=== PATIENT | male | born 1985 | race Caucasian/White ===

== ENCOUNTER 2017-02-18 21:43 | Inpatient (IN) | payer OTHER ==
[~2017-02-18] VITALS: Ht 180.3 cm; Wt 72.1 kg
[2017-02-18 21:46] VITALS: BP 128/83
[2017-02-18] MEDS ORDERED: HUMULIN N100 UNIT/3 (21:52)
[2017-02-18] MEDS ORDERED: LANTUS100 UNIT/M SUBQ (21:52)
[2017-02-18 21:54] LABS: ABSOLUTE BASOPHILS 0.1 thou/uL (0.0-0.2); ABSOLUTE EOSINOPHILS 0.1 thou/uL (0.0-0.7); ABSOLUTE MONOCYTES 1.1 thou/uL (0.0-1.2); ABSOLUTE NEUTROPHILS 10.6 thou/uL (1.6-8.1); BASOPHILS 0.7 %; EOSINOPHILS 0.6 %; HEMATOCRIT 48.5 % (42.0-52.0); LYMPHOCYTES 14.3 %; MCH 30.2 pg (26.0-34.0); MCHC 33.1 g/dL (28.0-37.0); MCV 91.2 fL (80.0-100.0); MONOCYTES 8.1 %; NUCLEATED RBCS 0 /100WBC; PLATELET COUNT* 377 thou/uL (150-400); POLYS 76.3 %; RBC 5.31 mil/uL (4.50-6.00); RDW-CV 13.6 % (10.5-14.5); WBC 13.9 thou/uL (4.0-11.0)
[2017-02-18 22:08] LABS: ANION GAP 16 mmol/L (7-16); BUN 19 mg/dL (7-18); CALCIUM 9.9 mg/dL (8.5-10.1); CHLORIDE 101 mmol/L (98-107); CO2 28 mmol/L (21-32); CREATININE 1.2 mg/dL (0.6-1.3); SODIUM 145 mmol/L (136-145)
[2017-02-18 22:13] LABS: ALBUMIN 4.3 g/dL (3.4-5.0); ALKALINE PHOSPHATASE 153 U/L (46-116); SGOT 22 U/L (15-37); SGPT 47 U/L (30-65); TOTAL BILIRUBIN 0.4 mg/dL (<0.1-1.0); TOTAL PROTEIN 8.5 g/dL (6.4-8.2); TROPONIN-I LEVEL <0.06 ng/mL (<0.06)
[2017-02-18 22:20] LABS: GLUCOSE 24 mg/dL (70-99)
[2017-02-19 00:04] VITALS: BP 96/60
[2017-02-19 00:30] VITALS: BP 124/75
[2017-02-19] MEDS ORDERED: [UNRECOGNIZED DRUG - OTHER] SUBQ (01:29)
[2017-02-19] MEDS ORDERED: LEXAPRO 10 MG T10 M2 PO (01:30)
[2017-02-19] MEDS ORDERED: CLONAZEPAM 0.50.5 M1 PO (01:31)
[2017-02-19 08:04] VITALS: BP 112/57
[2017-02-19] MEDS ORDERED: HUMULIN N100 UNIT/3 SUBQ (08:46)
[2017-02-19 10:10] LABS: URINE BILIRUBIN NEGATIVE (Negative); URINE BLOOD TRACE (Negative); URINE CLARITY CLEAR; URINE COLOR YELLOW; URINE GLUCOSE-RANDOM 2+ (Negative); URINE KETONES NEGATIVE (Negative); URINE LEUKOCYTES-REFLEX NEGATIVE (Negative); URINE NITRITE-REFLEX NEGATIVE (Negative); URINE PROTEIN NEGATIVE (Negative); URINE UROBILINOGEN 0.2 E.U./dl (0.2-1.0)
[2017-02-19 10:17] LABS: AMP/METHAMP POSITIVE (Negative); BARBITURATES Negative (Negative); BENZODIAZEPINES Negative (Negative); COCAINE Negative (Negative); METHADONE Negative (Negative); OPIATES Negative (Negative); PCP Negative (Negative); THC POSITIVE (Negative)
--- NOTE | 2017-02-19 12:29 | EKG ---
[place] [address] ELECTROCARDIOGRAM REPORT Name: TAE ZELAYA Room: [address] ADM IN [facility].#: [id number] Admission: 02/18/17 Attend Phys: Alex Mueller Discharge: Date of : 85 Report #: [id number] THIS REPORT FOR: //name// [facility] ED Test Date: 2017-02-18 Test Time: 22:02:53 Pat Name: TAE ZELAYA Department: Room: [facility] Gender: M Ginner: : 1985 Requested By: Christiano Condon Order Number: [id number] MD: Olegario Guevara Measurements Intervals [place] Rate: 82 P: 40 RI: 136 QRS: -37 QRSD: 105 T: 56 QT: 353 QTc: 413 Interpretive Statements Sinus rhythm Left axis deviation No previous ECG available for comparison Electronically Signed On 02-19-2017 12:28:58 UNDERGROUND REPAIRER by Olegario Guevara [email or web address] <ELECTRONICALLY SIGNED> By: Olegario Guevara MD, [facility] 02/19/17 1228 2201 01 Olegario Guevara MD, FACC /EPI
[2017-02-19 12:41] VITALS: BP 112/57
[2017-02-19 13:30] VITALS: BP 112/57
== END 2017-02-19 13:30 | disposition home or self-care (01) | DRG 639 ==
LOC: M.ERS 21:43 → M.ORTHSURG 23:25 → M.TBA-ER 23:25 → M.ORTHSURG 02-19 00:28
PROVIDERS: Emergency Medicine Emergency Medical Services; ADMIT Internal Medicine
DX: E10.649 Type 1 diabetes mellitus with hypoglycemia without coma (principal); F17.210 Nicotine dependence, cigarettes, uncomplicated; J45.909 Unspecified asthma, uncomplicated; F41.9 Anxiety disorder, unspecified; Z91.19 Patient's noncompliance with other medical treatment and regimen; Z79.4 Long term (current) use of insulin; Z89.112 Acquired absence of left hand

== ENCOUNTER 2017-04-23 16:50 | Emergency (ER) | payer OTHER ==
[~2017-04-23] VITALS: Ht 180.3 cm; Wt 68.0 kg
[~2017-04-23 16:50] MED LIST: CLONAZEPAM 0.50.5 M1 PO; HUMULIN N100 UNIT/3; HUMULIN N100 UNIT/3 SUBQ; LANTUS100 UNIT/M SUBQ; LEXAPRO 10 MG T10 M2 PO; [UNRECOGNIZED DRUG - OTHER] SUBQ
[2017-04-23] MEDS ORDERED: LANTUS100 UNIT/M SUBQ (17:04)
[2017-04-23 17:20] LABS: URINE BILIRUBIN NEGATIVE (Negative); URINE BLOOD NEGATIVE (Negative); URINE CLARITY CLEAR; URINE COLOR YELLOW; URINE GLUCOSE-RANDOM 3+ (Negative); URINE KETONES TRACE (Negative); URINE LEUKOCYTES-REFLEX NEGATIVE (Negative); URINE NITRITE-REFLEX NEGATIVE (Negative); URINE PROTEIN NEGATIVE (Negative); URINE UROBILINOGEN 0.2 E.U./dl (0.2-1.0)
[2017-04-23 17:28] LABS: AMP/METHAMP POSITIVE (Negative); BARBITURATES Negative (Negative); BENZODIAZEPINES Negative (Negative); COCAINE Negative (Negative); METHADONE Negative (Negative); OPIATES POSITIVE (Negative); PCP Negative (Negative); THC Negative (Negative)
[2017-04-23 17:36] LABS: ABSOLUTE BASOPHILS 0.1 thou/uL (0.0-0.2); ABSOLUTE EOSINOPHILS 0.1 thou/uL (0.0-0.7); ABSOLUTE LYMPHOCYTES 2.1 thou/uL (0.8-5.3); ABSOLUTE MONOCYTES 0.6 thou/uL (0.0-1.2); ABSOLUTE NEUTROPHILS 4.4 thou/uL (1.6-8.1); EOSINOPHILS 1.4 %; HEMATOCRIT 44.1 % (42.0-52.0); HEMOGLOBIN 14.9 gm/dL (14.0-18.0); LYMPHOCYTES 29.3 %; MCH 30.8 pg (26.0-34.0); MCHC 33.9 g/dL (28.0-37.0); MCV 90.8 fL (80.0-100.0); MONOCYTES 7.9 %; MPV 10.3 fl. (7.2-11.1); NUCLEATED RBCS 0 /100WBC; PLATELET COUNT* 286 thou/uL (150-400); POLYS 60.4 %; RBC 4.86 mil/uL (4.50-6.00); RDW-CV 12.4 % (10.5-14.5); WBC 7.3 thou/uL (4.0-11.0)
[2017-04-23 18:11] LABS: CALCIUM 8.9 mg/dL (8.5-10.1); CREATININE 1.1 mg/dL (0.6-1.3); POTASSIUM 4.6 mmol/L (3.5-5.1)
[2017-04-23 18:17] LABS: ALBUMIN 3.8 g/dL (3.4-5.0); TOTAL BILIRUBIN 0.3 mg/dL (<0.1-1.0); TOTAL PROTEIN 6.9 g/dL (6.4-8.2)
[2017-04-23 18:39] VITALS: BP 117/73
--- NOTE | 2017-04-25 12:58 | EKG ---
[place] [address] ELECTROCARDIOGRAM REPORT Name: TAE ZELAYA Room: [facility]#: [id number] Admission: 04/23/17 Attend Phys: Discharge: 04/23/17 Date of : 85 Report #: [id number] THIS REPORT FOR: //name// [facility] ED Test Date: 2017-04-23 Test Time: 17:17:30 Pat Name: TAE ZELAYA Department: Room: Gender: M [employer]: Michael QUINN : 1985 Requested By: Amairani Love Order Number: [id number] MD: Jason Pederson Measurements Intervals [place] Rate: 81 P: 41 MD: 122 QRS: -35 QRSD: 91 T: 57 QT: 360 QTc: 418 Interpretive Statements Sinus rhythm Left axis deviation Baseline wander in lead(s) I,III,aVL Compared to ECG 02/18/2017 22:02:53 No significant changes Electronically Signed On 04-25-2017 12:58:28 CDT by Jason Pederson [email or web address] <ELECTRONICALLY SIGNED> By: Jonnathan Pederson MD, FAC 04/25/17 1258 1717 1717 F. Jason Pederson MD, [facility] /EPI
== END 2017-04-23 18:40 ==
LOC: M.ERS 16:50
PROVIDERS: Physician Assistant
DX: E10.65 Type 1 diabetes mellitus with hyperglycemia (principal); J45.909 Unspecified asthma, uncomplicated; F41.9 Anxiety disorder, unspecified; F17.210 Nicotine dependence, cigarettes, uncomplicated

== ENCOUNTER 2018-06-27 00:23 | Inpatient (IN) | payer OTHER ==
[2018-06-27] VITALS (22 sets, daily range): BP systolic 97–136; BP diastolic 50–85
[~2018-06-27] VITALS: Ht 180.3 cm; Wt 70.0 kg
[2018-06-27 00:55] LABS: ABSOLUTE LYMPHOCYTES 1.3 thou/uL (0.8-5.3); ABSOLUTE MONOCYTES 0.5 thou/uL (0.0-1.2); ABSOLUTE NEUTROPHILS 4.5 thou/uL (1.6-8.1); BASOPHILS 0.8 %; EOSINOPHILS 0.7 %; HEMOGLOBIN 14.4 gm/dL (14.0-18.0); LYMPHOCYTES 20.4 %; MCH 30.8 pg (26.0-34.0); MCHC 32.7 g/dL (28.0-37.0); MCV 94.1 fL (80.0-100.0); MONOCYTES 8.5 %; MPV 10.3 fl. (7.2-11.1); NUCLEATED RBCS 0 /100WBC; PLATELET COUNT* 287 thou/uL (150-400); POLYS 69.6 %; RBC 4.68 mil/uL (4.50-6.00); RDW-CV 13.5 % (10.5-14.5); WBC 6.5 thou/uL (4.0-11.0)
[2018-06-27 01:13] LABS: ALBUMIN 3.7 g/dL (3.4-5.0); CALCIUM 9.2 mg/dL (8.5-10.1); CREATININE 1.5 mg/dL (0.6-1.3); POTASSIUM 5.8 mmol/L (3.5-5.1); TOTAL BILIRUBIN 0.7 mg/dL (<0.1-1.0); TOTAL PROTEIN 7.2 g/dL (6.4-8.2)
[2018-06-27 04:38] LABS: URINE BILIRUBIN NEGATIVE (Negative); URINE BLOOD NEGATIVE (Negative); URINE CLARITY CLEAR; URINE COLOR YELLOW; URINE GLUCOSE-RANDOM 3+ (Negative); URINE KETONES 2+ (Negative); URINE LEUKOCYTES-REFLEX NEGATIVE (Negative); URINE NITRITE-REFLEX NEGATIVE (Negative); URINE PROTEIN NEGATIVE (Negative); URINE UROBILINOGEN 0.2 E.U./dl (0.2-1.0)
[2018-06-27 04:46] LABS: AMP/METHAMP POSITIVE (Negative); BARBITURATES Negative (Negative); BENZODIAZEPINES Negative (Negative); COCAINE Negative (Negative); METHADONE Negative (Negative); OPIATES Negative (Negative); PCP Negative (Negative); THC Negative (Negative)
[2018-06-27 05:36] LABS: CALCIUM 8.6 mg/dL (8.5-10.1); POTASSIUM 3.5 mmol/L (3.5-5.1)
[2018-06-27 05:38] LABS: ALBUMIN 3.3 g/dL (3.4-5.0); MAGNESIUM 2.1 mg/dL (1.8-2.4); PHOSPHORUS* 3.9 mg/dL (2.5-4.9)
--- NOTE | 2018-06-27 07:08 | NUR ---
PATIENT ARRIVED ON UNIT AT 0415. ASSESSMENT CHARTED. PATIENT'S BLOOD GLUCOSE HAS BEEN LABILE. ARRIVED ON INSULIN GTT. CURRENTLY OFF. ADMINISTERED D50 PER PROTOCOL. BLOOD GLUCOSE LEVEL RISING SLOWLY. ON ADMIT TO ER, PATIENT'S GLUCOSE LEVEL WAS 750. PATIENT A&OX4, DOES NOT COMPLAIN OF ANYTHING. ARRIVED TO UNIT WITH POLICE ESCORT IN CUSTODY. POLICE HAVE RELEASED PATIENT FROM CUSTODY AND WILL NOT SIT WITH PATIENT. WILL CONTINUE TO MONITOR.
--- NOTE | 2018-06-27 07:40 | NUR ---
BEGINING OF SHIFT. PT RESTING IN BED, INSULIN GTT TURNED OFF BY NIGHT RN BLOOD SUGARS ARE STABLE IN THE 140S. CHANGE IVF TO D5 1/2 NS AT 100ML/HR. WILL CONTINUE TO ASSESS.
[2018-06-27 08:19] LABS: CALCIUM 8.6 mg/dL (8.5-10.1); CREATININE 1.1 mg/dL (0.6-1.3); POTASSIUM 3.5 mmol/L (3.5-5.1)
--- NOTE | 2018-06-27 10:30 | NUR ---
RECEIVED REFERRAL TO SEE PT FOR MEDICATION ASSISTANCE. PT CURRENTLY SLEEPING, WILL SEE LATER.
[2018-06-27 13:42] LABS: CALCIUM 8.5 mg/dL (8.5-10.1); CREATININE 0.9 mg/dL (0.6-1.3)
--- NOTE | 2018-06-27 13:44 | NUR ---
PT WAS SEEN RUNNING OUT OFF ICU. PT PULLED OUT IV AND AND TOOK OFF TELE. CONTACT SECURITY AND PT DSEEN RUNNING DOWN [address]. SECURITY INFORMS ME THAT PT HAS WARRANTS FOR ARREST.
[2018-06-28 13:07] LABS: GLYCOHEMOGLOBIN (HGB A1C) 10.8 % (4.8-5.6)
== END 2018-06-27 13:30 | disposition left against medical advice (07) | DRG 639 ==
LOC: M.ERS 00:23 → M.TBA-ER 01:46 → M.ICU 03:51
PROVIDERS: Emergency Medicine; Internal Medicine; ADMIT Internal Medicine
DX: E10.10 Type 1 diabetes mellitus with ketoacidosis without coma (principal); F41.9 Anxiety disorder, unspecified; F15.90 Other stimulant use, unspecified, uncomplicated; J45.909 Unspecified asthma, uncomplicated; F17.210 Nicotine dependence, cigarettes, uncomplicated; Z53.21 Procedure and treatment not carried out due to patient leaving prior to being seen by health care provider; Z79.4 Long term (current) use of insulin; Z91.19 Patient's noncompliance with other medical treatment and regimen; Z89.022 Acquired absence of left finger(s)